=== PATIENT | male | born 1955 | race Caucasian/White ===

== ENCOUNTER 2024-02-22 12:25 | Inpatient (IN) | payer MEDICARE, OTHER ==
[~2024-02-22] VITALS: Ht 175.3 cm; Wt 75.3 kg
[2024-02-22 13:03] LABS: BASOPHILS # (AUTO) 0.1 K/uL (0.0-0.2); BASOPHILS % (AUTO) 1.1 % (0.0-2.0); EOSINOPHILS # (AUTO) 0.9 K/uL (0.0-0.7); EOSINOPHILS % (AUTO) 17.8 % (0.0-6.0); HEMATOCRIT 38 % (39-51); HEMOGLOBIN 12.7 g/dL (13.5-17.5); LYMPHOCYTES # (AUTO) 0.4 K/uL (0.8-4.8); LYMPHOCYTES % (AUTO) 7.3 % (20.0-44.0); MEAN CORPUSCULAR HEMOGLOBIN 34 PG (26.0-33.0); MEAN CORPUSCULAR HGB CONC 33 g/dl (31.0-36.0); MEAN CORPUSCULAR VOLUME 102 fL (80-96); MONOCYTES # (AUTO) 0.3 K/uL (0.1-1.30); MONOCYTES % (AUTO) 6.2 % (2.0-12.0); NEUTROPHILS # (AUTO) 3.4 K/uL (1.8-8.9); NEUTROPHILS % (AUTO) 67.6 % (43.0-81.0); PLATELET COUNT (AUTO) 106 K/uL (150-450); RED BLOOD CELL COUNT(AUTO) 3.78 MIL/uL (4.5-6.0); RED CELL DISTRIBUTION WIDTH 13.8 % (11.5-15.0)
[2024-02-22 13:18] LABS: CALCIUM, SERUM 8.7 mg/dL (8.5-10.1)
[2024-02-22 13:31] LABS: CREATININE 13.9 mg/dL (0.6-1.3); POTASSIUM 6.7 mmol/L (3.5-5.1)
[2024-02-22] MEDS ORDERED: Calcium Gluconate 0.465 MEQ/ML VIAL IV ONE (13:39)
[2024-02-22] MEDS: SODIUM BICARBONATE SYR 50 MEQ/50 ML DISP.SYRIN IV ONE (14:00)
[2024-02-22] MEDS: Calcium Gluconate 1GM/10ML 4.65 MEQ in IV NS 0.9% 100 ML IV ONE (14:00)
[2024-02-22] MEDS: SODIUM ZIRCONIUM CYCLOSILICATE 10 GM POWD.PACK PO ONE (14:00)
[2024-02-22] MEDS: DEXTROSE 50%-WATER 50 ML DISP.SYRIN IVP ONE (14:00)
[2024-02-22] MEDS ORDERED: APIX2.5T PO (15:23)
[2024-02-22] MEDS ORDERED: FOLI0.8T3 PO (15:23)
[2024-02-22] MEDS ORDERED: GLYB2.5T4 PO (15:23)
[2024-02-22] MEDS ORDERED: FURO40TA5 PO (15:23)
[2024-02-22] MEDS ORDERED: EZET10TA32 PO (15:23)
[2024-02-22] MEDS ORDERED: CARV6.252 PO (15:23)
[2024-02-22] MEDS ORDERED: HYDR-4077 PO (15:23)
[2024-02-22] MEDS ORDERED: TEST200V3 IM (15:23)
[2024-02-22] MEDS ORDERED: OXYC5TAB3 PO (15:23)
[2024-02-22] MEDS ORDERED: BISA5TAB10 PO (15:23)
[2024-02-22] MEDS ORDERED: ATOR40TA PO (15:23)
[2024-02-22] MEDS ORDERED: BIMA2.5D5 EACHEYE (15:23)
[2024-02-22 15:30] VITALS: BP 177/86; TEMP 97.3; O2SAT 100
[2024-02-22] MEDS ORDERED: MAG HYDROX/AL HYDROX/SIMETH 30 ML UDC PO PRN (16:00)
[2024-02-22] MEDS ORDERED: ONDANSETRON HCL/PF 4 MG/2 ML VIAL IVP PRN (16:00)
[2024-02-22] MEDS ORDERED: Z GUARD REMEDY 4 OZ OINT TP PRN (16:00)
[2024-02-22] MEDS ORDERED: MAGNESIUM HYDROXIDE 30 ML UDC PO PRN (16:00)
[2024-02-22] MEDS ORDERED: ZOLPIDEM TARTRATE 5 MG TABLET PO PRN (16:00)
[2024-02-22] MEDS ORDERED: ACETAMINOPHEN 325 MG TABLET PO PRN (16:00)
[2024-02-22] MEDS: SODIUM POLYSTYRENE SULFONATE 15 G/60 ML BOTTLE PO ONE (16:23)
[2024-02-22 17:50] VITALS: BP 157/82; O2SAT 100
[2024-02-22 20:21] VITALS: O2SAT 98
[2024-02-22] MEDS ORDERED: DEXTROSE 50%-WATER 50 ML DISP.SYRIN IV PRN (20:30)
[2024-02-22] MEDS: HEPARIN SODIUM, PORCINE 5000 UNITS/1 ML VIAL SQ SCH (21:22)
[2024-02-22] MEDS: BLOOD SUGAR DIAGNOSTIC 1 EACH STRIP IN SCH (22:55)
[2024-02-22] MEDS: INSULIN REGULAR, HUMAN 100 UNIT/ML 3 ML VIAL SQ PRN (22:56)
[2024-02-23 06:57] LABS: BASOPHILS % (AUTO) 0.4 % (0.0-2.0); EOSINOPHILS # (AUTO) 0.7 K/uL (0.0-0.7); EOSINOPHILS % (AUTO) 20.2 % (0.0-6.0); HEMATOCRIT 37 % (39-51); HEMOGLOBIN 12.1 g/dL (13.5-17.5); LYMPHOCYTES # (AUTO) 0.4 K/uL (0.8-4.8); LYMPHOCYTES % (AUTO) 11.2 % (20.0-44.0); MEAN CORPUSCULAR HEMOGLOBIN 33 PG (26.0-33.0); MEAN CORPUSCULAR HGB CONC 33 g/dl (31.0-36.0); MEAN CORPUSCULAR VOLUME 102 fL (80-96); MONOCYTES # (AUTO) 0.5 K/uL (0.1-1.30); MONOCYTES % (AUTO) 14.3 % (2.0-12.0); NEUTROPHILS # (AUTO) 1.8 K/uL (1.8-8.9); NEUTROPHILS % (AUTO) 53.9 % (43.0-81.0); PLATELET COUNT (AUTO) 88 K/uL (150-450); RED BLOOD CELL COUNT(AUTO) 3.63 MIL/uL (4.5-6.0); WHITE BLOOD COUNT (AUTO) 3.2 K/uL (4.3-11.0)
[2024-02-23 07:25] LABS: CALCIUM, SERUM 9.1 mg/dL (8.5-10.1); MAGNESIUM 3.4 mg/dL (1.8-2.4); PHOSPHORUS 6.4 mg/dL (2.5-4.9)
[2024-02-23 07:46] LABS: CREATININE 9.8 mg/dL (0.6-1.3)
[2024-02-23 08:00] VITALS: BP 159/80; TEMP 97.5; O2SAT 97
[2024-02-23 08:42] LABS: BASOPHILS % (MANUAL) 0 % (0.0-2.0); EOSINOPHILS % (MANUAL) 19 % (0-4); LYMPHOCYTES % (MANUAL) 11 % (16-48); MONOCYTES % (MANUAL) 14 % (0-11.0); NEUTROPHILS % (MANUAL) 56 (42-76); PLATELET ESTIMATE DECREASED
[2024-02-23 12:00] VITALS: BP 145/69; TEMP 97.5; O2SAT 97
[2024-02-24 06:11] LABS: HEPATITIS B SURFACE AB Reactive (.)
== END 2024-02-23 15:27 | disposition home or self-care (01) | DRG 640 ==
LOC: ER 12:30 → TELE1 15:00
PROVIDERS: ADMIT Student in an Organized Health Care Education/Training Program; ATTEND Student in an Organized Health Care Education/Training Program
PROC: 5A1D70Z Performance of Urinary Filtration, Intermittent, Less than 6 Hours Per Day (ICD-10-PCS; principal; 2024-02-22)
DX: E87.5 Hyperkalemia (principal); N18.6 End stage renal disease; I12.0 Hypertensive chronic kidney disease with stage 5 chronic kidney disease or end stage renal disease; N17.9 Acute kidney failure, unspecified; D69.6 Thrombocytopenia, unspecified; Z99.2 Dependence on renal dialysis; E11.22 Type 2 diabetes mellitus with diabetic chronic kidney disease; E11.649 Type 2 diabetes mellitus with hypoglycemia without coma; I25.10 Atherosclerotic heart disease of native coronary artery without angina pectoris; D64.9 Anemia, unspecified; I25.2 Old myocardial infarction; M89.8X9 Other specified disorders of bone, unspecified site; Z95.0 Presence of cardiac pacemaker; Z88.5 Allergy status to narcotic agent; Z86.73 Personal history of transient ischemic attack (TIA), and cerebral infarction without residual deficits; I70.0 Atherosclerosis of aorta; Z79.01 Long term (current) use of anticoagulants; Z79.899 Other long term (current) drug therapy; Z79.890 Hormone replacement therapy
CPT/HCPCS: 36415; 71045-TC; 80048-TC; 82962-TC; 83735-TC; 84100-TC; 84132-TC; 85025-TC; 86706; 87340; 90935-TC; 94799-TC; A4223; G0378; J0610; J1644; J1815; J3490; J7030